=== PATIENT | female | born 1980 | race Hispanic/Latino ===

== ENCOUNTER 2019-04-02 17:28 | Emergency (ER) | payer SELFPAY | END 2019-04-02 18:10 | disposition home or self-care (01) | LOC: MADERS 17:28 | DX: S46.812A Strain of other muscles, fascia and tendons at shoulder and upper arm level, left arm, initial encounter (principal); S46.811A Strain of other muscles, fascia and tendons at shoulder and upper arm level, right arm, initial encounter | CPT/HCPCS: 99281 ==